=== PATIENT | female | born 1965 | race Hispanic/Latino ===

== ENCOUNTER 2022-03-20 12:42 | Emergency (ER) | payer MEDICARE ==
[2022-03-20] MEDS ORDERED: ASPIRIN 325 MG TAB PO ONE (15:27)
--- NOTE | 2022-03-20 15:55 | XRay Report ---
CHEST 2 VIEWS INDICATION / CLINICAL INFORMATION: chest pain. COMPARISON: None available. FINDINGS: SUPPORT DEVICES: None. HEART / MEDIASTINUM: No significant abnormality. LUNGS / PLEURA: No significant pulmonary or pleural abnormality. No pneumothorax. ADDITIONAL FINDINGS: No significant additional findings. IMPRESSION: 1. No acute findings. Signer Name: Kirk Myesr MD Signed: 03/20/2022 3:51 PM Workstation Name: [id number]
[2022-03-20 16:42] LABS: Basophils # (Auto) 0.1 K/mm3 (0.0-0.1); Basophils % (Auto) 0.8 % (0.0-1.8); Eosinophils # (Auto) 0.5 K/mm3 (0.0-0.4); Eosinophils % (Auto) 3.4 % (0.0-4.3); Hematocrit 42.5 % (30.3-42.9); Hemoglobin 14.9 gm/dl (10.1-14.3); Lymphocytes # (Auto) 4.2 K/mm3 (1.2-5.4); Lymphocytes % (Auto) 31.3 % (13.4-35.0); Mean Corpuscular HGB Conc 35 % (30-34); Mean Corpuscular Volume 89 fl (79-97); Monocytes # (Auto) 0.9 K/mm3 (0.0-0.8); Monocytes % (Auto) 6.9 % (0.0-7.3); Platelet Count 259 K/mm3 (140-440); Red Blood Count 4.76 M/mm3 (3.65-5.03); Red Cell Distribution Width 12.7 % (13.2-15.2)
[2022-03-20 17:04] LABS: Alanine Aminotransferase 16 units/L (7-56); Albumin 4.5 g/dL (3.9-5); Blood Urea Nitrogen 6 mg/dL (7-17); Hemolysis Index 6
[2022-03-20 17:08] LABS: BUN/Creatinine Ratio 9
--- NOTE | 2022-03-20 20:13 | Emergency Department Report ---
ED Chest Pain HPI - General Chief Complaint: Chest Pain Stated Complaint: LEFT SIDEPAIN/ARM AND SHOULDER Time Seen by Provider: 03/20/22 16:39 Source: patient Mode of arrival: Ambulatory Limitations: No Limitations - History of Present Illness Initial Comments: pt reports L-sided CP and L shoulder blade pain x a few days. Pt reports PMH of a CT , claims she was diagnosed with that when she was in psych facility but never had stent or cath , on trazadone , celexa and nruontin Severity scale (0 -10): 0 - Related Data Home Medications Medication Instructions Recorded Confirmed Last Taken Celexa 03/20/22 Unknown Neurontin 03/20/22 Unknown traZODone 03/20/22 Unknown Allergies Allergy/AdvReac Type Severity Reaction Status Date / Time haloperidol [From Haldol] Allergy Unknown Verified 03/20/22 15:25 Sulfa (Sulfonamide Allergy Unknown Verified 03/20/22 15:25 Antibiotics) Heart Score - HEART Score History: Slightly suspicious EKG: Normal Age: 45-65 Risk factors: 1-2 risk factors Troponin: < normal limit HEART Score: 2 - EKG Read Time Time EKG Completed: 15:00 EKG Read Time: 15:15 - Critical Actions Critical Actions: 0-3 pts:0.9-1.7%risk of adverse cardiac event.Candidate for discharge ED Review of Systems ROS: Stated complaint: LEFT SIDEPAIN/ARM AND SHOULDER Other details as noted in HPI Constitutional: denies: chills, fever Eyes: denies: eye pain, eye discharge, vision change ENT: denies: ear pain, throat pain Respiratory: denies: cough, shortness of breath, wheezing Cardiovascular: denies: chest pain, palpitations Endocrine: no symptoms reported Gastrointestinal: denies: abdominal pain, nausea, diarrhea Genitourinary: denies: urgency, dysuria, discharge Musculoskeletal: denies: back pain, joint swelling, arthralgia Skin: denies: rash, lesions Neurological: denies: headache, weakness, paresthesias Psychiatric: denies: anxiety, depression Hematological/Lymphatic: denies: easy bleeding, easy bruising ED Past Medical Hx - Past Medical History Previous Medical History?: No Hx Hypertension: No Hx Psychiatric Treatment: Yes - Medications Home Medications: Home Medications Medication Instructions Recorded Confirmed Last Taken Type Celexa 03/20/22 Unknown History Neurontin 03/20/22 Unknown History traZODone 03/20/22 Unknown History ED Physical Exam - General Limitations: No Limitations ED Course Vital Signs 03/20/22 03/20/22 03/20/22 15:25 16:41 16:43 Temperature 97.8 F 98.0 F Pulse Rate 96 H 76 Respiratory 18 20 Rate Blood Pressure 123/81 124/79 [Right] O2 Sat by Pulse 99 99 Oximetry 03/20/22 19:16 Temperature 98.9 F Pulse Rate 76 Respiratory 18 Rate Blood Pressure 128/83 [Right] O2 Sat by Pulse 99 Oximetry ED Medical Decision Making - Lab Data Result diagrams: 03/20/22 16:03 03/20/22 16:03 - EKG Data -: EKG Interpreted by Tn EKG shows normal: sinus rhythm Rate: normal - EKG Data Interpretation: no acute changes - Radiology Data Radiology results: report reviewed, image reviewed - Medical Decision Making work up nge , rpeat trop negative vss, refused pain meds Critical care attestation.: If time is entered above; I have spent that time in minutes in the direct care of this critically ill patient, excluding procedure time. ED Disposition Clinical Impression: Chest pain Disposition: HOME / SELF CARE / HOMELESS Is pt being admited?: No Does the pt Need Aspirin: No Condition: Stable Instructions: Nonspecific Chest Pain, Adult Referrals: LUIS BEACH MD [Staff Physician] - 3-5 Days
[2022-03-20 21:08] VITALS: BP 128/93
--- NOTE | 2022-03-21 13:46 | Electrocardiograph Report ---
[facility] Test Date: 2022-03-20 Test Time: 15:15:16 Pat Name: MARY ARAGON Department: Room: Gender: F [employer]: BP : 1965 Requested By: AUGUSTO ARRIOLA Order Number: [id number] Reading MD: Jim Martinez Measurements Intervals [place] Rate: 71 P: 68 MT: 183 QRS: 48 QRSD: 84 T: 47 QT: 422 QTc: 458 Interpretive Statements Sinus rhythm Early repolarization ST changes No previous ECG available for comparison Electronically Signed On 03-21-2022 13:45:28 EDT by Jim Martinez
== END 2022-03-20 21:12 | disposition home or self-care (01) ==
LOC: ED 12:42
DX: R07.9 Chest pain, unspecified (principal); Z88.2 Allergy status to sulfonamides; Z91.09 Other allergy status, other than to drugs and biological substances
CPT/HCPCS: 36415; 71046; 80053; 84484; 85025; 93005; 99284

== ENCOUNTER 2022-04-14 16:46 | Emergency (ER) | payer MEDICARE ==
[2022-04-14 16:57] VITALS: BP 152/105
== END 2022-04-14 20:00 | disposition left against medical advice (07) ==
LOC: ED 16:46
DX: R69 Illness, unspecified (principal); Z53.21 Procedure and treatment not carried out due to patient leaving prior to being seen by health care provider